=== PATIENT | female | born 1980 | race Caucasian/White ===

== ENCOUNTER 2017-01-30 10:51 | Inpatient (IN) | payer BC, OTHER ==
--- NOTE | 2017-01-30 12:03 | EDPHY ---
H & P Smoking Status: Never smoked Time Seen by Provider: 01/30/17 11:01 HPI/ROS: CHIEF COMPLAINT: Depression HISTORY OF PRESENT ILLNESS: 36-year-old female presents to the emergency department voluntarily with her sister feeling increasingly depressed. The patient has been suffering from depression for the last year and half. She has been on multiple different medications. Currently she has been on Wellbutrin and Neurontin for the last 1 month. She has had suicidal thoughts although she has no plan of suicide. No homicidal ideation. She denies auditory or visual hallucinations. Denies substance abuse. She is currently unemployed. She has had intermittent headaches as well as paresthesias in her upper lower extremities. She was seen at a hospital in [place] yesterday and had a CT scan of her brain. She was to be medically cleared for a mental health evaluation there but decided to come back home to [place] for further evaluation. She does not have a psychiatrist. She has only seen a primary care provider. She has been told that she is post menopausal. She is currently on control pills. REVIEW OF SYSTEMS: Constitutional: No fever, no chills. Eyes: No double or blurry vision. ENT: No sore throat. Respiratory: No cough, no shortness of breath. Cardiac: No chest pain. Gastrointestinal: No abdominal pain, vomiting or diarrhea. Genitourinary: No dysuria. Musculoskeletal: No neck or back pain. Skin: No rashes. Neurological: No headache. (Fabiola Mitchell) Past Medical/Surgical History: Depression (Fabiola Mitchell) Social History: Single and lives in [place] (Fabiola Mitchell) Physical Exam: General Appearance: Alert, no distress. Vitals are stable. Sister at bedside. Eyes: Pupils equal and round. Extraocular motions are all intact. ENT: Mouth: Mucous membranes moist. Respiratory: No wheezing, rhonchi, or rales, lungs are clear to auscultation. Cardiovascular: Regular rate and rhythm. Gastrointestinal: Abdomen is soft and nontender, no masses, no rebound or guarding, bowel sounds normal. Neurological: Alert and oriented x 3, cranial nerves II through XII grossly intact Skin: Warm and dry, no rashes. Musculoskeletal: Nontender to palpate along the cervical, thoracic or lumbar spine. Neck is supple. Extremities: Full range of motion and no peripheral edema. Psychiatric: Patient is oriented X 3, there is no agitation. (Fabiola Mitchell) Constitutional: Initial Vital Signs Temperature (C) 36.6 C 01/30/17 10:54 Heart Rate 62 01/30/17 10:54 Respiratory Rate 16 01/30/17 10:54 Blood Pressure 98/66 L 01/30/17 10:54 O2 Sat (%) 99 01/30/17 10:54 O2 Delivery Mode Room Air Allergies/Adverse Reactions: No Known Allergies Allergy (Unverified 01/30/17 10:53) Home Medications: Medication Instructions Recorded ALPRAZolam [Xanax 0.5 MG (*)] 0.5 mg PO DAILY PRN 01/30/17 Gabapentin [Neurontin 100 MG (*)] 100 mg PO HS 01/30/17 Herbals/Supplements -Info Only 1 ea PO DAILY 01/30/17 LORazepam [Ativan (*)] 1 mg PO DAILY PRN 01/30/17 Norgestimate-Ethinyl Estradiol 1 each PO DAILY 01/30/17 [Sprintec] buPROPion XL [Wellbutrin Xl] 450 mg PO DAILY 01/30/17 Medical Decision Making ED Course/Re-evaluation: The patient had recent workup at a hospital in [place], [place]. She had a negative head CT as well. The patient has also had recent laboratory studies which revealed FSH of 98 showing that she was postmenopausal. She has had very irregular periods and is being worked up by primary care provider. I did encourage her to have close follow up with an OBGYN. The patient is also never seen a psychiatrist, counselor or therapist. I also encouraged her to establish care with a psychiatrist but also talk with counselor or therapist about her ongoing problems get to the root of her depression. The patient was placed on a detainer by myself. She does have her sister at bedside and she is here voluntarily. However the patient has had ongoing suicidal thoughts. Once she is medically cleared, she will be evaluated by mental health. Patient was a evaluated by mental health and was placed on an M1 hold. They are currently looking for inpatient mental health treatment. (Fabiola Mitchell) 1899: Patient signed out to me by RAÚL Ross, at shift change. She has been accepted at [facility] Yu and is awaiting transfer. (Pepper Troncoso) Differential Diagnosis: Depression including functional and major depression, situational depression, medication side effect, drugs and alcohol abuse. (Tamra Mitchellrinzeina Wilkes) Care Turn Over: Care will be turned over to Dr. Pepper Troncoso for disposition and plan. (Fabiola Mitchell) - Data Points Laboratory Results: Laboratory Results 01/30/17 12:10 01/30/17 12:10 01/30/17 01/30/17 01/30/17 12:30 12:10 12:10 WBC RBC Hgb Hct MCV MCH MCHC RDW Plt Count MPV Neut % (Auto) Lymph % (Auto) Wise % (Auto) Eos % (Auto) Baso % (Auto) Nucleat RBC Rel Count Absolute Neuts (auto) Absolute Lymphs (auto) Absolute Monos (auto) Absolute Eos (auto) Absolute Basos (auto) Absolute Nucleated RBC Immature Gran % Immature Gran # Sodium 139 mEq/L mEq/L (134-144) Potassium 4.1 mEq/L mEq/L (3.5-5.2) Chloride 106 mEq/L mEq/L (97-110) Carbon Dioxide 27 mEq/l mEq/l (22-31) Anion Gap 6 mEq/L L mEq/L (8-16) BUN 12 mg/dL mg/dL (7-23) Creatinine 0.9 mg/dL mg/dL (0.6-1.0) Estimated GFR > 60 Glucose 70 mg/dL mg/dL (70-100) Calcium 9.0 mg/dL mg/dL (8.5-10.4) TSH 1.350 uIU/mL uIU/mL (0.465-4.680) Beta HCG, Qual NEGATIVE Urine Opiates Screen NEGATIVE (NEGATIVE) Urine Barbiturates NEGATIVE (NEGATIVE) Ur Phencyclidine Scrn NEGATIVE (NEGATIVE) Ur Amphetamine Screen NEGATIVE (NEGATIVE) U Benzodiazepines Scrn NEGATIVE (NEGATIVE) Urine Cocaine Screen NEGATIVE (NEGATIVE) U Marijuana (THC) Screen NEGATIVE (NEGATIVE) 01/30/17 12:10 WBC 4.71 10^3/uL 10^3/uL (3.80-9.50) RBC 4.63 10^6/uL 10^6/uL (4.18-5.33) Hgb 14.0 g/dL g/dL (12.6-16.3) Hct 41.9 % % (38.0-47.0) MCV 90.5 fL fL (81.5-99.8) MCH 30.2 pg pg (27.9-34.1) MCHC 33.4 g/dL g/dL (32.4-36.7) RDW 12.5 % % (11.5-15.2) Plt Count 333 10^3/uL 10^3/uL (150-400) MPV 8.6 fL L fL (8.7-11.7) Neut % (Auto) 53.2 % % (39.3-74.2) Lymph % (Auto) 36.7 % % (15.0-45.0) Wise % (Auto) 6.8 % % (4.5-13.0) Eos % (Auto) 2.1 % % (0.6-7.6) Baso % (Auto) 0.8 % % (0.3-1.7) Nucleat RBC Rel Count 0.0 % % (0.0-0.2) Absolute Neuts (auto) 2.50 10^3/uL 10^3/uL (1.70-6.50) Absolute Lymphs (auto) 1.73 10^3/uL 10^3/uL (1.00-3.00) Absolute Monos (auto) 0.32 10^3/uL 10^3/uL (0.30-0.80) Absolute Eos (auto) 0.10 10^3/uL 10^3/uL (0.03-0.40) Absolute Basos (auto) 0.04 10^3/uL 10^3/uL (0.02-0.10) Absolute Nucleated RBC 0.00 10^3/uL 10^3/uL (0-0.01) Immature Gran % 0.4 % % (0.0-1.1) Immature Gran # 0.02 10^3/uL 10^3/uL (0.00-0.10) Sodium Potassium Chloride Carbon Dioxide Anion Gap BUN Creatinine Estimated GFR Glucose Calcium TSH Beta HCG, Qual Urine Opiates Screen Urine Barbiturates Ur Phencyclidine Scrn Ur Amphetamine Screen U Benzodiazepines Scrn Urine Cocaine Screen U Marijuana (THC) Screen Departure - Departure Clinical Impression: Suicidal ideation, Severe major depression Condition: Good Referrals: NONE *PRIMARY CARE P,. [Primary Care Provider] - As per Instructions
[2017-01-30 12:20] LABS: % IMMATURE GRANULYOCYTES 0.4 % (0.0-1.1); ABSOLUTE IMMATURE GRANULOCYTES 0.02 10^3/uL (0.00-0.10); ADD DIFF? NO; ADD MORPH? NO; ADD SCAN? NO; ATYPICAL LYMPHOCYTE FLAG 20 (0-99); FRAGMENT RBC FLAG 0 (0-99); HEMATOCRIT 41.9 % (38.0-47.0); LEFT SHIFT FLG 0 (0-99); LIPEMIA HEMOLYSIS FLAG 80 (0-99); MEAN CELL HEMOGLOBIN 30.2 pg (27.9-34.1); MEAN CELL HEMOGLOBIN CONCENTR. 33.4 g/dL (32.4-36.7); MEAN CELL VOLUME 90.5 fL (81.5-99.8); MEAN PLATELET VOLUME 8.6 fL (8.7-11.7); PLATELET CLUMPS FLAG 0 (0-99); PLATELET COUNT 333 10^3/uL (150-400); RED BLOOD CELL COUNT 4.63 10^6/uL (4.18-5.33); RED CELL DISTRIBUTION WIDTH 12.5 % (11.5-15.2)
[2017-01-30 12:35] LABS: ANION GAP 6 mEq/L (8-16); CARBON DIOXIDE 27 mEq/l (22-31); CHLORIDE 106 mEq/L (97-110); CREATININE 0.9 mg/dL (0.6-1.0); GLOMERULAR FILTRATION RATE > 60; GLUCOSE 70 mg/dL (70-100); POTASSIUM 4.1 mEq/L (3.5-5.2); SODIUM 139 mEq/L (134-144)
[2017-01-30] MEDS ORDERED: MAG HYDROX/AL HYDROX/SIMETH 30 ML UDCUP PO PRN (21:35)
[2017-01-30] MEDS ORDERED: ACETAMINOPHEN 325 MG TAB PO PRN (21:35)
[2017-01-30] MEDS ORDERED: ALPRAZolam 0.5 MG TAB PO PRN ×2 (21:35)
[2017-01-30] MEDS ORDERED: GABAPENTIN 100 MG CAP PO SCH (21:35)
[2017-01-30] MEDS ORDERED: MAGNESIUM HYDROXIDE 30 ML UDCUP PO PRN (21:35)
[2017-01-30] MEDS ORDERED: LORazepam 1 MG TAB PO PRN (21:35)
[2017-01-30] MEDS: GABAPENTIN 100 MG CAP PO SCH (22:35)
[2017-01-30] MEDS: LORazepam 1 MG TAB PO PRN (22:36)
[2017-01-31] MEDS: buPROPion XL 150 MG TAB PO SCH ×3 (08:14→11:28)
[2017-01-31] MEDS ORDERED: NORGESTIMATE ETHINYL ESTRADIOL PO SCH (09:00)
[2017-01-31] MEDS: NORGESTIMATE ETHINYL ESTRADIOL PO SCH (11:28)
--- NOTE | 2017-01-31 15:25 | BCON ---
[f rep st] BEHAVIORAL HEALTH CONSULTATION DATE OF CONSULTATION: 01/31/2017 REFERRING PHYSICIAN: Dr. Yu REASON FOR REFERRAL: Medical clearance for inpatient behavioral health stay. HISTORY OF PRESENT ILLNESS: The patient presented to the [facility] Emergency Department yesterday voluntarily with her sister, feeling depressed. She had been suffering from depression for the last year and a half and has been on multiple trials of different medications. She had suicidal thoughts with no plan. She was evaluated by the mental health team and admitted for further psychiatric care. Currently, she is without any acute complaints. PAST MEDICAL HISTORY: Postmenopausal with early menopause. PAST SURGICAL HISTORY: She denies any surgical history. MEDICATIONS: 1. Alprazolam 0.5 mg p.o. daily p.r.n. 2. Gabapentin 100 mg p.o. at bedtime. 3. Lorazepam 1 mg p.o. daily p.r.n. 4. Norgestimate-ethinyl estradiol 1 p.o. daily. 5. Bupropion XL 450 mg p.o. daily. ALLERGIES: There are no known drug allergies. SOCIAL HISTORY: She is . She came out as a Lesbian 3 years ago. She is a nonsmoker. She uses occasional alcohol. She is currently unemployed. She has been dividing her time between [place] where she lives in, and [place] where she has family. FAMILY HISTORY: There is a family history of mental health issues including substance abuse and bipolar disorder. REVIEW OF SYSTEMS: She denies any postmenopausal symptoms including no hot flashes. She denies cough or dyspnea. She denies fever or chills. She denies weight change. She denies chest pain or palpitations. She denies nausea, vomiting, constipation, diarrhea, and otherwise a 10-point review of systems is negative. PHYSICAL EXAM: VITAL SIGNS: Blood pressure is 113/62, heart rate is 64, respiratory rate is 16, oxygen saturation is 97% on room air. Temperature is 36.8 degrees centigrade. Her weight is 71.3 kg for a body mass index of 23.2. GENERAL: This is a well-nourished, well-developed woman, cooperative and in no acute distress. HEENT: Extraocular movements are intact. Pupils are equal, round , and reactive to light. Mucous membranes are moist. Dentition is in good condition. NECK: Supple. HEART: There is a regular rate and rhythm with no murmurs, rubs, or gallops. LUNGS: Clear to auscultation bilaterally. ABDOMEN: Soft, nontender, nondistended with normoactive bowel sound. EXTREMITIES: There is no cyanosis, clubbing, or edema. NEUROLOGIC: She is alert and oriented x3. Cranial nerves 2-12 are grossly intact. There is no focal weakness, and sensation is intact to light touch. LABORATORY STUDIES: Drawn in the emergency department: CBC showed a low mean platelet volume at 8.6, with the lower end of the normal range being 8.7, otherwise was within normal limits. Serum chemistry revealed normal renal function and electrolytes. Normal TSH at 1.35, and beta hCG was negative for . Urine toxicology screen was negative for any substances of abuse. ASSESSMENT AND RECOMMENDATIONS: 1. Mental health issues. Pending further evaluation and management per Psychiatry and the mental health team. 2. Postmenopausal state. She reported her FSH a year and a half ago, when she was evaluated for hot flashes, was elevated at 98. She has since been put on control pills and has had resolution of her symptoms. She asks about her hormone levels. I will add on an LH and an FSH. She was advised to consider discontinuation of the control and initiation of hormone replacement and then gradual tapering to the lowest effective dose or discontinuation. She can follow up with a culture media laboratory assistant after her discharge. I see no medical contraindications to the patient's continued stay on the inpatient behavioral health unit or to any psychiatric medications or procedures. Thank you very much for including me in the care of this patient. Please do not hesitate to contact me or the hospitalist service should there be need for further medical evaluation. /[id number]/[facility] and [id number], 01/31/17, 9597 [facility]
[2017-01-31 17:13] LABS: FOLLICLE STIMULATING HORMONE 6.46 mIU/mL; LUTEINIZING HORMONE 4.51 mIU/mL
[2017-01-31] MEDS: LORazepam 1 MG TAB PO PRN (20:52)
[2017-01-31] MEDS: GABAPENTIN 100 MG CAP PO SCH (21:02)
[2017-02-01] MEDS: buPROPion XL 150 MG TAB PO SCH (08:15)
--- NOTE | 2017-02-01 08:17 | BAPA ---
[f rep st] ADMISSION PSYCHIATRIC ASSESSMENT PATIENT IDENTIFICATION: The patient presents as a 36-year-old, , white female, who is currently unemployed, living with family members in [place]; she is not an identified psychiatric outpatient in the community. She was admitted to [address] [place] [address] on an M1 hold for complaints of a depressive crisis, including intensifying suicidal ideation. She was initially medically cleared, and psychiatrically assessed by [facility] prior to the admission. HISTORY OF PRESENT ILLNESS: The patient reports a chronic history of low-level syndromal depression for many years, possible onset in childhood or early adolescents. She relates this to an emerging sense in childhood that she sexually preferred girls. This awareness created a severe internal conflictual experience for the patient, accompanied by shame and self-devaluation. She attributes this to being raised in a fundamentalist Christianity family, in which homosexuality was deemed sinful. She states that she presented herself as heterosexual in her life course through adolescence into young adulthood. This included marriage. She states she was in the course of the marriage and discovered she was no longer able to suppress her sheridan interests. She initially shared this dimension of herself with her , who was supportive and understanding. The couple and the patient decided to come out of the closet as a homosexual woman 3 years ago. She states she has had several partners, but has remained depressed. Beginning 18 months ago, her syndromal depression increased, associated with dysphoric mood, diminished energy, social withdrawal, and anhedonia. She associates her intensifying depressive state to conflicted relationships with her parents and other members of her family of origin who "do not understand homosexuality and are so uncomfortable around me. " An additional stressor was her dissatisfaction with her extended job. 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 The patient made several brief attempts to obtain outpatient psychiatric care, associated with psychotherapeutic interventions. She also had several brief trial of medications including Celexa and one other SSRI. Most recently, she initiated a trial of bupropion, prescribed by a nurse practitioner, associated with the [facility]. She had seen this clinician for complaints of hot flashes, and was placed on Estradiol contraception pill, which was helpful in resolving the hot flashes. The bupropion dosing was increased to 450 mg of the XL preparation several days ago. She states she is not experienced benefit and reports likely experiencing the FILTER TANK OPERATOR activation at this higher dose. The patient acknowledges an intensification of suicidal ideation, with vague plans. She became increasingly concerned about her safety, spoke to her sister, who brought her directly to the [facility] emergency room. She was cleared medically and seen by [facility]. The patient stated "I can't get anything going in my life; I would be better off ." The patient's syndromal acuity was reaffirmed in the [facility] assessment. She was deemed to be high risk of self-harm and sent on for admission to [facility] on an M1 hold. Medical clearance included an unremarkable physical exam. Lab screens included a CBC, BMP, TSH, and a beta HCG screen. All lab screens were unremarkable and/or within normal limits. PAST PSYCHIATRIC HISTORY: As referenced above. MEDICAL HISTORY: No active medical problems; postmenopausal with early menopause. ALLERGIES: Patient reports no food, environmental, or medication allergies. MEDICAL REVIEW OF SYSTEMS: Negative. SUBSTANCE ABUSE HISTORY: The patient denies any past or present problems associated with alcohol and/or drug misuse. LEGAL HISTORY: Patient denies past or present legal issues. PERSONAL HISTORY/FAMILY HISTORY: Patient was born and raised in an intact family of origin, and is 1 of 8 children. Patient denies a history of trauma and/or abuse in the course of her upbringing. The patient's parents were active practitioners of a fundamental Amish and all the children were actively involved and attended Saturday school and jain. As stated above, the patient's homosexual stirrings became evident to the patient in late childhood and remained suppressed through adolescence and early adulthood. 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 She reports the job became increasingly dissatisfied, although, she performed effectively, until finally terminating the job within the past several years. She has not established other meaningful work and has felt compromised by her syndromal depression. The patient was for approximately 8 years, several years ago, prior to coming out as a sheridan woman. She and her ex remain friends, and she reports him as understanding and empathic with her sexual identity. There is a significant family pedigree for mental illness. Two brothers have been diagnosed as having bipolar disorders. One brother is also a significant drug abuser, who has received treatment. Other family members are reported as having substance abuse problems. Family pedigree will be further clarified in intake phase. ADMISSION MENTAL STATUS EXAM: The patient presents as a well kempt adult female , looking her stated age. The patient's gait and station are normal, she is cooperative and engaging in the initial session. She presents as relatively calm and conversant. The patient's mood state is significantly dysphoric. Affective range is constricted and expression of affect blunted. The patient's thought process is reality focused, with no evidence for psychotic disorganization. Patient does acknowledge passive suicidality. She is openly disclosing and providing content as referenced above. Her intelligence appears average, as associated with her vocabulary, language syntax, fund of information. She is alert and oriented x4 with full memory capacity across immediate, recent, and remote domains. She expresses positive interest in engaging her inpatient treatment intervention with stated interest in resolving symptoms, as well as cooperating with the psychiatric workup and referral to a definitive discharge plan. She is agreeable to currently continuing the trial of bupropion 450 mg XL, as medications are further assessed. ADL functions appear to be intact and appropriate for her age. Session focuses on staging current mental status, obtaining syndromal symptom and treatment history, and over viewing lifeline history. FORMULATION: The patient presents as a 36-year-old, , white female, with a history positive for early onset symptomatic depression in late childhood , early adolescents, essentially mild and untreated until significant exacerbation emerged 1-1/2 to 2 years ago. Depression intensified in the context of conflicts with family of origin members, including parents and other sibs, coincident with patient's declaring her homosexuality. This had been a repressed and suppressed intrapsychic element over the years and had included an 8 year marriage, from which patient prior to declaring her lesbian identity. The patient has been minimally treated and stating her preference to complete a diagnostic workup and establish a followup treatment plan during this inpatient stay. ADMISSION DIAGNOSTIC IMPRESSION: [place] I: 1. Major depressive disorder-chronic induration, increasing severity over the past 18 months to crisis proportions, including intense suicidal ideation preadmission. 2. Rule out generalized anxiety disorder. [place] II: Deferred. [place] III: No active medical problems; S/P postmenopausal. [place] IV: Chronic dynamic conflict associated with the patient's homosexuality interfacing with her and her family's fundamentalist Christianity believes; more recent conflictive interaction between the patient and family members since she declared her lesbian identity several years ago; unemployment and confusion about establishing a new work identity after leaving her job of 15 years. [place] V: Admission GAF 85. INITIAL TREATMENT PLAN: 1. Nursing: Complete admission assessment; monitor patient for safety and suicidality; reinforce compliance with cares and medications; orient patient to the social milieu and group program and encourage participation. 2. Psychiatry: Complete admission assessment; provide daily E/M contacts with focus on completing diagnostic workup, assessing and managing psychoactive medication needs, providing brief psychotherapeutic contacts, linking patient to definitive discharge planning at discharge. 3. Clinical coordinator-daily contacts to expand the database including contacting primary collaterals; linking patient to discharge resources prior to discharge. 4. Admission medical consultation with Dr. Mendoza-che. 5. Medications: We will continue preadmission medications including bupropion XL 450 mg q.a.m., Xanax 0.5 mg p.r.n., and Ativan 1 mg h.s. p.r.n.; we will assess and modify as needed in first phase. 6. Primary treatment goals: Stabilize mental status sufficient for discharge; complete diagnostic formulation to inform discharge planning; ally patient with followup treatment. /[id number]/MODL MTDD
[2017-02-01] MEDS: NORGESTIMATE ETHINYL ESTRADIOL PO SCH (08:18)
--- NOTE | 2017-02-01 14:40 | SOAPPROG ---
SRUTHI Progress Note Assessment/Plan: Assessment: Plan: 02/01/17 14:22 DAY UPDATE: Nursing reports pt as been isolative but compliant with cares/med, attending some groups, brightens with family visits. ON EXAM: presents as calm,cooperative, conversant; seen initially with her brother who is one of the Bipolar brothers; he states he is stable on meds; reports he's wondered if pt has occasional hypomanic swings but has never seen her manic like himself and his brother. Pt concurs absence of manias and not sure if has hypomanias. Seen alone pt is again disclosing about personal history; emphasizes the sense of "disconnect" with "the little girl" she was as primary pain a/w her depression; led to discussion of how useful psychotherapy could be focussed to heal the sense of disconnection; meds reviewed with changes made as referenced; finally, pt agreed to sign in as Voluntary pt; mood evidences residual dysphoria but pt denies SI ASSESSMENT/PLAN: residual syndromal depression but SI resolving/ begin Klonopin 0.5 mg tid, add Doxepin 25 mg hs; DC Ativan and Xanax Objective: Vital Signs Temp Pulse Resp BP Pulse Ox 36.8 C 67 15 101/63 97 02/01/17 06:00 02/01/17 06:00 02/01/17 06:00 02/01/17 06:00 02/01/17 06:00 ICD10 Worksheet Patient Problems: Problems Problem Status Onset Severe major depression Acute Suicidal ideation Acute
[2017-02-01] MEDS: clonazePAM 0.5 MG TAB PO SCH ×2 (16:18→21:16)
[2017-02-01] MEDS: DOXEPIN HCL 25 MG CAP PO SCH (21:17)
[2017-02-02] MEDS: NORGESTIMATE ETHINYL ESTRADIOL PO SCH (08:24)
[2017-02-02] MEDS: clonazePAM 0.5 MG TAB PO SCH ×3 (08:24→21:03)
[2017-02-02] MEDS: buPROPion XL 150 MG TAB PO SCH (08:24)
--- NOTE | 2017-02-02 15:50 | SOAPPROG ---
SOAP Progress Note Assessment/Plan: Assessment: Plan: 02/02/17 15:49 Improving. CCM. Will allow AG as she seems invested in treatment and recovery and denies intent to harm herself. Subjective: Pt seen, discussed with staff, chart reviewed. Continues to prefer to be in her room alone. Did not attend morning groups. Reading books and napping. States she has adjusted to the med changes well. Notes improved mood overall. Requests AG with family. Objective: Vital Signs Temp Pulse Resp BP Pulse Ox 36.8 C 74 15 94/63 L 98 02/02/17 06:00 02/02/17 06:00 02/02/17 06:00 02/02/17 06:00 02/02/17 06:00 MSE: Calm, coop. Affect is dysphoric, blunted. Mood is "blah." TP linear. TC reveals no psychosis. Denies active SI at this time. - Time Spent With Patient Time Spent With Patient: 15" - Pending Discharge Pending Discharge Within 24 Hours: No ICD10 Worksheet Patient Problems: Problems Problem Status Onset Severe major depression Acute Suicidal ideation Acute
[2017-02-02] MEDS: DOXEPIN HCL 25 MG CAP PO SCH (21:03)
[2017-02-03 06:24] VITALS: BP 99/57
[2017-02-03] MEDS: NORGESTIMATE ETHINYL ESTRADIOL PO SCH (08:33)
[2017-02-03] MEDS: clonazePAM 0.5 MG TAB PO SCH (08:33)
[2017-02-03] MEDS: buPROPion XL 150 MG TAB PO SCH (08:33)
[2017-02-03] MEDS ORDERED: LORazepam 0.5 MG TAB PO PRN (11:06)
--- NOTE | 2017-02-03 19:36 | SOAPPROG ---
SOSRINI Progress Note Assessment/Plan: Assessment: Plan: 02/02/17 15:49 Improving. CCM. Will allow AG as she seems invested in treatment and recovery and denies intent to harm herself. 02/03/17 19:40 Continued improvement. Daytime sedation likely due to combination of scheduled clonazepam and doxepin. Will d/c clonazepam, resume prn lorazepam, monitor. O/ w CCM. Subjective: Pt seen, discussed with staff. Reports feeling "a lot better" today. Disappointed that she cannot go to her family's Easter dinner but also relieved. Notes subjective improvement with Wellbutrin. C/o excessive sleepiness during the day. Anxiety has diminished. Sleep is good with doxepin. SI improved. Reviewed d/c and f/u plans. Expects to leave soon and stay in [place] for a week before going to [place]. Hopes to move into a different living circumstance soon in [place]. 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 Objective: Vital Signs Temp Pulse Resp BP Pulse Ox 36.7 C 75 16 99/57 L 99 02/03/17 06:00 02/03/17 06:00 02/03/17 06:00 02/03/17 06:00 02/03/17 06:00 MSE: Calm, coop. Appears tired/sleepy. Affect is blunted, stable. Mood is "better." TP linear. TC reveals no psychosis. SI "less." - Time Spent With Patient Time Spent With Patient: 25" ICD10 Worksheet Patient Problems: Problems Problem Status Onset Severe major depression Acute Suicidal ideation Acute
[2017-02-03] MEDS: DOXEPIN HCL 25 MG CAP PO SCH (20:34)
[2017-02-04 06:13] VITALS: PULSE 72; RESP 15; TEMP 98.1; O2SAT 95
--- NOTE | 2017-02-04 06:48 | SOAPPROG ---
SRUTHI Progress Note Assessment/Plan: Assessment: Plan: 02/01/17 14:22 DAY UPDATE: Nursing reports pt as been isolative but compliant with cares/med, attending some groups, brightens with family visits. ON EXAM: presents as calm,cooperative, conversant; seen initially with her brother who is one of the Bipolar brothers; he states he is stable on meds; reports he's wondered if pt has occasional hypomanic swings but has never seen her manic like himself and his brother. Pt concurs absence of manias and not sure if has hypomanias. Seen alone pt is again disclosing about personal history; emphasizes the sense of "disconnect" with "the little girl" she was as primary pain a/w her depression; led to discussion of how useful psychotherapy could be focussed to heal the sense of disconnection; meds reviewed with changes made as referenced; finally, pt agreed to sign in as Voluntary pt; mood evidences residual dysphoria but pt denies SI ASSESSMENT/PLAN: residual syndromal depression but SI resolving/ begin Klonopin 0.5 mg tid, add Doxepin 25 mg hs; DC Ativan and Xanax 02/04/17 DAY UPDATE: Objective: Vital Signs Temp Pulse Resp BP Pulse Ox 36.7 C 72 15 99/57 L 95 02/04/17 06:00 02/04/17 06:00 02/04/17 06:00 02/04/17 06:00 02/04/17 06:00 ICD10 Worksheet Patient Problems: Problems Problem Status Onset Severe major depression Acute Suicidal ideation Acute
[2017-02-04] MEDS: buPROPion XL 150 MG TAB PO SCH (08:41)
[2017-02-04] MEDS: NORGESTIMATE ETHINYL ESTRADIOL PO SCH (08:41)
[2017-02-04] MEDS ORDERED: clonazePAM 0.5 MG TAB PO PRN (12:48)
--- NOTE | 2017-02-04 13:24 | SOAPPROG ---
SOAP Progress Note Assessment/Plan: Assessment: Plan: 02/01/17 14:22 DAY ' UPDATE: Nursing reports pt as been isolative but compliant with cares/med, attending some groups, brightens with family visits. ON EXAM: presents as calm,cooperative, conversant; seen initially with her brother who is one of the Bipolar brothers; he states he is stable on meds; reports he's wondered if pt has occasional hypomanic swings but has never seen her manic like himself and his brother. Pt concurs absence of manias and not sure if has hypomanias. Seen alone pt is again disclosing about personal history; emphasizes the sense of "disconnect" with "the little girl" she was as primary pain a/w her depression; led to discussion of how useful psychotherapy could be focussed to heal the sense of disconnection; meds reviewed with changes made as referenced; finally, pt agreed to sign in as Voluntary pt; mood evidences residual dysphoria but pt denies SI ASSESSMENT/PLAN: residual syndromal depression but SI resolving/ begin Klonopin 0.5 mg tid, add Doxepin 25 mg hs; DC Ativan and Xanax 02/04/17 13:15 DAY ' Brief DC Note UPDATE: nursing reports pt as improving descriptively over the weekend; meds/ cares compliant ON EXAM: presents as calm, cooperative, con versant; residual mild dysphoria; pt denies SI, reports syndromal improvement and interest in DC today; meds reviewed; followup treatment a/w goals discussed; pt clarifies more distress with life planning ambiguity that her sexual identity concerns and fills out more detail with the progress that she experiences in her family's growing acceptance of her homosexuality; she conveys more of a sense of global identity confusion. She appears sufficiently stable for safe DC with filled out plans for followup. ASSESSMENT/PLAN: DC today will stay with family for 1 week, then reutrn to [place] to live, work and followup treatment appointments made for 02/14 for mental health followup gynecologic followup also in [place] next week meds prescribed for 15 days as referenced see DC Summary Medications Generic Name Dose Route Start Last Admin Trade Name Freq PRN Reason Stop Dose Admin Bupropion HCl 450 mg 01/31/17 09:00 02/01/17 08:15 Wellbutrin Xl PO 07/30/17 08:59 450 mg DAILY CHAD Clonazepam 0.5 mg 02/01/17 16:00 Klonopin PO 07/31/17 15:59 TID CHAD Objective: Vital Signs Temp Pulse Resp BP Pulse Ox 36.7 C 72 15 99/57 L 95 02/04/17 06:00 02/04/17 06:00 02/04/17 06:00 02/04/17 06:00 02/04/17 06:00 ICD10 Worksheet Patient Problems: Problems Problem Status Onset Severe major depression Acute Suicidal ideation Acute
== END 2017-02-04 14:15 | disposition home or self-care (01) | DRG 885 ==
LOC: BBEH 21:35
PROVIDERS: ADMIT Psychiatry & Neurology Psychiatry; ATTEND Psychiatry & Neurology Psychiatry
DX: F33.2 Major depressive disorder, recurrent severe without psychotic features (principal)
CPT/HCPCS: 80305